=== PATIENT | female | born 1960 | race Two or more races ===

== ENCOUNTER → 2018-01-06 | Outpatient (CLI) | payer OTHER ==
[~2018-01-06] VITALS: Ht 152.4 cm; Wt 117.9 kg
[~2018-01-06] MED LIST: ALBUTEROL SULF8.5 GM IH; AMBIEN10 MG; AVAPRO300 MG PO; CARDIZEM CD240 MG; CARDIZEM CD240 MG PO; CARDIZEM120 MG PO; CLONAZEPAM0.5 MG; FLONASE16 GM NS; HYDROCHLOROTHIA25 MG; HYDROCHLOROTHIA25 MG PO; LOTRISONE CREAM45 GM TP; WELLBUTRIN SR150 MG; ZITHROMAX200 MG PO; ZITHROMAX500 MG PO; ZOLOFT50 MG; ZOVIRAX5 GM TP; ZYRTEC10 MG PO
== END | disposition home or self-care (01) ==
LOC: PPHC 17:54
DX: Z76.0 Encounter for issue of repeat prescription (principal)

== ENCOUNTER → 2018-01-27 | Outpatient (CLI) | payer OTHER ==
[~2018-01-27] VITALS: Ht 152.4 cm; Wt 127.0 kg
[~2018-01-27] MED LIST changes: +CLEOCIN HCL300 MG PO
== END | disposition home or self-care (01) ==
LOC: PPHC 16:12
DX: Z00.8 Encounter for other general examination (principal)

== ENCOUNTER 2018-01-28 07:55 | Outpatient (CLI) | payer OTHER | END 2018-01-28 15:00 | disposition home or self-care (01) | LOC: LAB 07:55 | DX: L02.612 Cutaneous abscess of left foot (principal); T78.1XXA Other adverse food reactions, not elsewhere classified, initial encounter; L08.9 Local infection of the skin and subcutaneous tissue, unspecified; D84.9 Immunodeficiency, unspecified ==

== ENCOUNTER 2018-08-12 13:35 | Outpatient (CLI) | payer OTHER | END 2018-08-12 13:51 | disposition home or self-care (01) | LOC: NUCLEAR 13:35 | DX: R06.09 Other forms of dyspnea (principal) ==

== ENCOUNTER → 2018-08-26 15:08 | Outpatient (CLI) | payer OTHER | END | disposition home or self-care (01) | LOC: RAD 15:08 | DX: J45.30 Mild persistent asthma, uncomplicated (principal) ==

== ENCOUNTER → 2019-03-28 17:21 | Outpatient (CLI) | payer OTHER | END | disposition home or self-care (01) | LOC: RAD 17:21 | DX: M94.0 Chondrocostal junction syndrome [Tietze] (principal); J45.30 Mild persistent asthma, uncomplicated ==

== ENCOUNTER 2020-02-13 09:26 | Outpatient (CLI) | payer OTHER | END 2020-02-13 14:51 | disposition home or self-care (01) | LOC: LAB 09:26 | DX: J11.1 Influenza due to unidentified influenza virus with other respiratory manifestations (principal); R05 Cough ==

== ENCOUNTER 2020-08-17 09:00 | Outpatient (CLI) | payer OTHER | END 2020-08-17 15:00 | disposition home or self-care (01) | LOC: PPH VACUNA 09:00 | DX: Z23 Encounter for immunization (principal) ==

== ENCOUNTER 2020-12-03 09:40 | Outpatient (CLI) | payer OTHER | END 2020-12-03 09:43 | disposition home or self-care (01) | LOC: PPH VACUNA 09:40 | DX: Z23 Encounter for immunization (principal) ==

== ENCOUNTER → 2021-04-22 10:31 | Outpatient (CLI) | payer OTHER | END | disposition home or self-care (01) | LOC: RAD 10:31 | PROVIDERS: ATTEND Emergency Medicine | DX: R05 Cough (principal); I10 Essential (primary) hypertension ==

== ENCOUNTER 2021-08-01 08:16 | Outpatient (CLI) | payer OTHER | END 2021-08-01 15:00 | disposition home or self-care (01) | LOC: LAB 08:16 | PROVIDERS: ATTEND Dentist General Practice | DX: Z20.818 Contact with and (suspected) exposure to other bacterial communicable diseases (principal) ==

== ENCOUNTER 2021-08-02 08:00 | Outpatient (CLI) | payer OTHER | END 2021-08-02 08:30 | disposition home or self-care (01) | LOC: PPH VACUNA 08:00 | PROVIDERS: ATTEND Emergency Medicine Pediatric Emergency Medicine | DX: Z23 Encounter for immunization (principal) ==

== ENCOUNTER 2021-08-27 08:00 | Outpatient (CLI) | payer OTHER | END 2021-08-27 08:30 | disposition home or self-care (01) | LOC: PPH VACUNA 08:00 | PROVIDERS: ATTEND Emergency Medicine Pediatric Emergency Medicine | DX: Z23 Encounter for immunization (principal) ==

== ENCOUNTER 2022-01-24 17:35 | Outpatient (CLI) | payer OTHER | END 2022-01-24 17:39 | disposition home or self-care (01) | LOC: RAD 17:35 | PROVIDERS: ATTEND Preventive Medicine Occupational Medicine | DX: M19.049 Primary osteoarthritis, unspecified hand (principal) ==

== ENCOUNTER 2022-03-21 08:00 | Outpatient (CLI) | payer OTHER | END 2022-03-21 08:30 | disposition home or self-care (01) | LOC: PPH VACUNA 08:00 | PROVIDERS: ATTEND Emergency Medicine Pediatric Emergency Medicine | DX: Z23 Encounter for immunization (principal) ==

== ENCOUNTER 2022-09-05 10:53 | Outpatient (CLI) | payer OTHER | END 2022-09-05 10:54 | disposition home or self-care (01) | LOC: PPH VACUNA 10:53 | PROVIDERS: ATTEND Emergency Medicine Pediatric Emergency Medicine | DX: Z23 Encounter for immunization (principal) ==

== ENCOUNTER 2022-09-12 12:46 | Outpatient (CLI) | payer OTHER | END 2022-09-12 12:56 | disposition home or self-care (01) | LOC: PPH VACUNA 12:46 | PROVIDERS: ATTEND Emergency Medicine Pediatric Emergency Medicine | DX: Z23 Encounter for immunization (principal) ==

== ENCOUNTER → 2023-07-30 | Outpatient (CLI) | payer OTHER | END | disposition home or self-care (01) | LOC: PPH VACUNA 08:46 | PROVIDERS: ATTEND Emergency Medicine Pediatric Emergency Medicine | DX: Z23 Encounter for immunization (principal) ==

== ENCOUNTER 2023-11-02 09:55 | Outpatient (CLI) | payer OTHER | END 2023-11-02 18:21 | disposition home or self-care (01) | LOC: LAB 09:55 | PROVIDERS: ATTEND Emergency Medicine Pediatric Emergency Medicine | DX: U07.1 COVID-19 (principal) ==

== ENCOUNTER 2024-02-14 14:26 | Inpatient (IN) | payer OTHER ==
[~2024-02-14] VITALS: Ht 162.6 cm; Wt 124.7 kg
[2024-02-14] MEDS ORDERED: MEPERIDINE HCL/PF 50 MG/ML VIAL IM STA (15:52)
[2024-02-14] MEDS ORDERED: 0.9 % SODIUM CHLORIDE 1,000 ML IV STA (15:53)
[2024-02-14] MEDS ORDERED: FAMOtidine 10 MG/ML (4ML VIAL) IV STA (15:54)
[2024-02-14] MEDS ORDERED: ONDANSETRON HCL 2 MG/ML VIAL IV ONE (16:00)
[2024-02-14 16:23] LABS: HEMATOCRIT 40.9 % (36.0-45.00); HEMOGLOBIN 13.5 g/dL (12.0-15.00); MEAN CELL VOLUME 81.2 fL (80.00-100.00); MEAN CORPUSCULAR HEMOGLOBIN 26.7 pg (27.00-32.0); PLATELET COUNT 283 K/uL (150-450); RED BLOOD COUNT 5.04 M/uL (4.00-6.00); RED CELL DISTRIBUTION WIDTH 15.1 % (11.5-14.5)
[2024-02-14 16:40] LABS: ALBUMIN 3.6 gm/dL (3.4-5.0); BILIRUBIN TOTAL 0.71 mg/dL (0.3-1.2); CALCIUM 10.1 mg/dL (8.5-10.1); CREATININE SERUM 0.77 mg/dL (0.55-1.02); GFR 75.96; POTASSIUM 3.75 mEq/L (3.5-5.1); TOTAL PROTEIN 8.2 gm/dL (6.4-8.2)
[2024-02-14 18:29] LABS: BILIRUBIN,CONJUGATED 0.13 mg/dL (0.0-0.2); BILIRUBIN,UNCONJUGATED 0.57 mg/dL (0.0-0.6)
[2024-02-14] MEDS ORDERED: IPRATROPIUM BROMIDE 0.5 MG/2.5 ML AMPUL.NEB IH SCH (19:18)
[2024-02-14] MEDS ORDERED: CEFTRIAXONE SODIUM 2,000 MG in 0.9 % SODIUM CHLORIDE 100 ML IV SCH (19:22)
[2024-02-14] MEDS ORDERED: METRONIDAZOLE/SODIUM CHLORIDE 100 ML IV SCH (19:23)
[2024-02-14] MEDS ORDERED: ONDANSETRON HCL 4 MG in 0.9 % SODIUM CHLORIDE 50 ML IV PRN (19:30)
[2024-02-14] MEDS ORDERED: ACETAMINOPHEN 500 MG GEL..CAP PO PRN (19:30)
[2024-02-14] MEDS ORDERED: INSULIN LISPRO 1,000 UNIT/10 ML UNITS SUBCUTANEO PRN (19:30)
[2024-02-14] MEDS ORDERED: 0.9 % SODIUM CHLORIDE 1,000 ML IV SCH (19:30)
[2024-02-14] MEDS ORDERED: MEPERIDINE HCL/PF 25 MG/ML VIAL IM PRN (19:30)
[2024-02-14] MEDS ORDERED: DEXTROSE 50 % IN WATER 0.5 G/ML DISP.SYRIN IV PRN (19:30)
[2024-02-14 21:32] LABS: INR 1.02; PARTIAL THROMBOPLASTIN TIME 29.1 SECONDS (22.0-34.0); PROTHROMBIN TIME 10.7 SECONDS (9.0-11.5)
[2024-02-14 23:48] LABS: PH,URINE 5.5 (5.0-8.0); URINE APPEARANCE Clear; URINE BILIRRUBIN Negative (NEGATIVE); URINE BLOOD Small; URINE COLOR Yellow; URINE GLUCOSE Negative (NEGATIVE); URINE LEUKOCYTE Negative; URINE NITRATE Negative; URINE PROTEIN Trace (NEGATIVE); URINE UROBILINOGEN 0.2 E.U./dl
[2024-02-14 23:49] LABS: URINE BACTERIA 162.5 uL (0.0-1933); URINE EPITHELIAL CELLS 8.1 uL (0.0-38.8); URINE WBC 2.1 uL (0.0-23.2)
[2024-02-15] MEDS ORDERED: LISINOPRIL 10 MG TABLET PO SCH (09:00)
[2024-02-15] MEDS ORDERED: ENOXAPARIN SODIUM 40 MG/0.4 ML SYRINGE SUBCUTANEO SCH (09:00)
[2024-02-15] MEDS ORDERED: DILTIAZEM HCL 240 MG CAP.SR.24H PO SCH (09:00)
[2024-02-15 15:17] LABS: CALCIUM 9.1 mg/dL (8.5-10.1); CHOL HDL RATIO 2.8 (0-5.0); CREATININE SERUM 0.7 mg/dL (0.55-1.02); GFR 84.79; POTASSIUM 3.31 mEq/L (3.5-5.1)
[2024-02-15] MEDS ORDERED: CEFEPIME HCL 2,000 MG VIAL IV SCH (17:00)
[2024-02-15] MEDS ORDERED: POTASSIUM CHLORIDE IN WATER 100 ML IV SCH (17:00)
[2024-02-15] MEDS ORDERED: AA 4.25%/CAL/LYTES/DEXT 5% 1,000 ML PERIFERAL SCH (17:00)
[2024-02-15] MEDS ORDERED: MONTELUKAST SODIUM 10 MG TABLET PO SCH (17:00)
[2024-02-16 06:40] LABS: HEMATOCRIT 34.9 % (36.0-45.00); HEMOGLOBIN 11.4 g/dL (12.0-15.00); MEAN CELL VOLUME 83.2 fL (80.00-100.00); MEAN CORPUSCULAR HEMOGLOBIN 27.3 pg (27.00-32.0); MEAN CORPUSCULAR HGB CONC 32.7 g/dl (32.0-36.0); PLATELET COUNT 269 K/uL (150-450); RED BLOOD COUNT 4.19 M/uL (4.00-6.00)
[2024-02-16 06:58] LABS: ALBUMIN 2.9 gm/dL (3.4-5.0); BILIRUBIN TOTAL 0.26 mg/dL (0.3-1.2); CREATININE SERUM 0.69 mg/dL (0.55-1.02); GFR 86.21; GLOBULINA 3.2 G/DL (2.4-3.5); MAGNESIUM 2.3 mg/dL (1.8-2.4); PHOSPHOROUS 3.9 mg/dL (2.5-4.9); POTASSIUM 3.56 mEq/L (3.5-5.1); TOTAL PROTEIN 6.1 gm/dL (6.4-8.2)
[2024-02-16 07:01] LABS: C-REACTIVE PROTEIN 33.8 MG/DL (0.00-0.29)
[2024-02-16] MEDS ORDERED: KETOROLAC TROMETHAMINE 30 MG VIAL ONE (14:29)
[2024-02-16] MEDS ORDERED: MEROPENEM 500 MG/VIAL VIAL IV SCH (18:00)
[2024-02-16 22:19] LABS: ABG PH 7.371 (7.35-7.45); ABG PO2 46.8 mmHg (80-100); ABG pCO2 53.5 mmHg (35-45); BASE EXCESS 3.7 mmol/l; BICARBONATE 30.3 mmol/l (23-25); SaO2 81.6 %; o2 21 %; puncture site RADIAL RIGHT
[2024-02-16 22:20] LABS: allen test SATISFACTORY
[2024-02-18 07:24] LABS: HEMATOCRIT 30.7 % (36.0-45.00); HEMOGLOBIN 9.8 g/dL (12.0-15.00); MEAN CELL VOLUME 82.5 fL (80.00-100.00); MEAN CORPUSCULAR HEMOGLOBIN 26.4 pg (27.00-32.0); PLATELET COUNT 276 K/uL (150-450); RED BLOOD COUNT 3.72 M/uL (4.00-6.00)
[2024-02-18 07:58] LABS: ALBUMIN 2.3 gm/dL (3.4-5.0); BILIRUBIN TOTAL 0.32 mg/dL (0.3-1.2); C-REACTIVE PROTEIN 30.3 MG/DL (0.00-0.29); CREATININE SERUM 0.5 mg/dL (0.55-1.02); GFR 125.02; GLOBULINA 3.9 G/DL (2.4-3.5); MAGNESIUM 2.1 mg/dL (1.8-2.4); PHOSPHOROUS 2.9 mg/dL (2.5-4.9); POTASSIUM 3.11 mEq/L (3.5-5.1); TOTAL PROTEIN 6.2 gm/dL (6.4-8.2)
[2024-02-18 21:18] LABS: PH,URINE 5.5 (5.0-8.0); URINE APPEARANCE Clear; URINE BILIRRUBIN Negative (NEGATIVE); URINE BLOOD Small; URINE COLOR Yellow; URINE GLUCOSE Negative (NEGATIVE); URINE LEUKOCYTE Negative; URINE NITRATE Negative; URINE PROTEIN Trace (NEGATIVE); URINE UROBILINOGEN 0.2 E.U./dl
[2024-02-18 21:22] LABS: URINE EPITHELIAL CELLS 3.3 uL (0.0-38.8); URINE RBC 5.1 uL (0.0-20.8)
[2024-02-19] MEDS ORDERED: METHYLPREDNISOLONE SOD SUCC 40 MG VIAL IV SCH (09:00)
[2024-02-19] MEDS ORDERED: DIPHENHYDRAMINE HCL 50 MG/ML VIAL 1ML IV ONE (21:45)
[2024-02-19] MEDS ORDERED: METHYLPREDNISOLONE SOD SUCC 40 MG VIAL IV ONE (21:45)
[2024-02-20] MEDS ORDERED: METHYLPREDNISOLONE SOD SUCC 40 MG VIAL IV SCH (01:00)
[2024-02-20 06:29] LABS: HEMATOCRIT 31.8 % (36.0-45.00); HEMOGLOBIN 10.2 g/dL (12.0-15.00); MEAN CELL VOLUME 81.7 fL (80.00-100.00); MEAN CORPUSCULAR HEMOGLOBIN 26.2 pg (27.00-32.0); PLATELET COUNT 336 K/uL (150-450); RED CELL DISTRIBUTION WIDTH 14.9 % (11.5-14.5)
[2024-02-20 08:10] LABS: CALCIUM 9.3 mg/dL (8.5-10.1); CREATININE SERUM 0.55 mg/dL (0.55-1.02); POTASSIUM 3.64 mEq/L (3.5-5.1)
[2024-02-20] MEDS ORDERED: METHYLPREDNISOLONE SOD SUCC 40 MG VIAL IV ONE (09:00)
[2024-02-20] MEDS ORDERED: DIPHENHYDRAMINE HCL 50 MG/ML VIAL 1ML IV ONE (09:00)
[2024-02-21] MEDS ORDERED: METHYLPREDNISOLONE SOD SUCC 40 MG VIAL IV SCH (09:00)
[2024-02-21] MEDS ORDERED: IPRATROPIUM BROMIDE 0.5 MG/2.5 ML AMPUL.NEB IH SCH (13:04)
[2024-02-21] MEDS ORDERED: CETIRIZINE HCL 5 MG/5 ML ML PO SCH (17:00)
[2024-02-21] MEDS ORDERED: PANTOPRAZOLE SODIUM 40 MG TABLET.DR PO SCH (21:00)
[2024-02-21] MEDS ORDERED: FLUTICASONE PROPIONATE 50 MCG SPRAY NASAL SCH (21:00)
[2024-02-22 08:55] LABS: ABG PH 7.435 (7.35-7.45); ABG PO2 52.8 mmHg (80-100); ABG pCO2 57.2 mmHg (35-45); BASE EXCESS 10.8 mmol/l; BICARBONATE 37.5 mmol/l (23-25); SaO2 89.1 %; Tco2 39.3 mmol/l; allen test SATISFACTORY; puncture site RADIAL RIGHT
[2024-02-22 08:56] LABS: o2 21 %
[2024-02-22] MEDS ORDERED: LISINOPRIL 20 MG TABLET PO SCH (17:00)
[2024-02-23 05:47] LABS: HEMATOCRIT 33.8 % (36.0-45.00); MEAN CELL VOLUME 83.2 fL (80.00-100.00); MEAN CORPUSCULAR HEMOGLOBIN 27.1 pg (27.00-32.0); MEAN CORPUSCULAR HGB CONC 32.6 g/dl (32.0-36.0); PLATELET COUNT 337 K/uL (150-450); RED BLOOD COUNT 4.06 M/uL (4.00-6.00); RED CELL DISTRIBUTION WIDTH 14.9 % (11.5-14.5)
[2024-02-23 07:03] LABS: ALBUMIN 2.7 gm/dL (3.4-5.0); BILIRUBIN TOTAL 0.24 mg/dL (0.3-1.2); CREATININE SERUM 0.51 mg/dL (0.55-1.02); GFR 122.19; POTASSIUM 4.16 mEq/L (3.5-5.1); TOTAL PROTEIN 5.7 gm/dL (6.4-8.2)
[2024-02-23] MEDS ORDERED: ENALAPRILAT DIHYDRATE 1.25 MG/ML VIAL IV ONE (10:59)
[2024-02-23] MEDS ORDERED: MIDAZOLAM HCL 2 MG/2 ML VIAL IV PUSH ONE (14:00)
[2024-02-23] MEDS ORDERED: fentaNYL CITRATE 50 MCG/ML AMPUL IV PUSH ONE (14:00)
== END 2024-02-24 18:57 | disposition home or self-care (01) | DRG 444 ==
LOC: ER 14:27 → SEC-K 19:33 → MEDI 19:33
PROVIDERS: General Practice; Internal Medicine; Internal Medicine Critical Care Medicine; Internal Medicine Infectious Disease; ADMIT Internal Medicine; ATTEND Internal Medicine
PROC: BW40ZZZ Ultrasonography of Abdomen (ICD-10-PCS; principal; 2024-02-14)
PROC: BW21YZZ Computerized Tomography (CT Scan) of Abdomen and Pelvis using Other Contrast (ICD-10-PCS; 2024-02-14)
PROC: B246ZZZ Ultrasonography of Right and Left Heart (ICD-10-PCS; 2024-02-14)
PROC: 3E0F7GC Introduction of Other Therapeutic Substance into Respiratory Tract, Via Natural or Artificial Opening (ICD-10-PCS; 2024-02-15)
PROC: BB24YZZ Computerized Tomography (CT Scan) of Bilateral Lungs using Other Contrast (ICD-10-PCS; 2024-02-19)
DX: K80.00 Calculus of gallbladder with acute cholecystitis without obstruction (principal); J96.92 Respiratory failure, unspecified with hypercapnia; J45.21 Mild intermittent asthma with (acute) exacerbation; Z68.42 Body mass index [BMI] 45.0-49.9, adult; E11.65 Type 2 diabetes mellitus with hyperglycemia; I27.20 Pulmonary hypertension, unspecified; J44.89 Other specified chronic obstructive pulmonary disease; G47.33 Obstructive sleep apnea (adult) (pediatric); K21.9 Gastro-esophageal reflux disease without esophagitis; Z79.4 Long term (current) use of insulin

== ENCOUNTER 2024-09-01 08:30 | Outpatient (CLI) | payer OTHER | END 2024-09-01 09:00 | disposition home or self-care (01) | LOC: PPH VACUNA 08:30 | PROVIDERS: ATTEND Emergency Medicine Pediatric Emergency Medicine | DX: Z23 Encounter for immunization (principal) ==

== ENCOUNTER → 2024-11-09 07:33 | Outpatient (CLI) | payer OTHER ==
[2024-11-09 08:26] LABS: HEMATOCRIT 37.1 % (36.0-45.00); HEMOGLOBIN 12.4 g/dL (12.0-15.00); MEAN CELL VOLUME 82.7 fL (80.00-100.00); MEAN CORPUSCULAR HEMOGLOBIN 27.6 pg (27.00-32.0); MEAN CORPUSCULAR HGB CONC 33.3 g/dl (32.0-36.0); PLATELET COUNT 311 K/uL (150-450); RED BLOOD COUNT 4.49 M/uL (4.00-6.00)
[2024-11-09 09:49] LABS: ALBUMIN 3.8 gm/dL (3.4-5.0); BILIRUBIN TOTAL 0.47 mg/dL (0.3-1.2); CALCIUM 9.7 mg/dL (8.5-10.1); CHOL HDL RATIO 2.3 (0-5.0); CREATININE SERUM 0.83 mg/dL (0.55-1.02); GFR 69.66; GLOBULINA 3.1 G/DL (2.4-3.5); POTASSIUM 4.12 mEq/L (3.5-5.1); TOTAL PROTEIN 6.9 gm/dL (6.4-8.2)
== END | disposition home or self-care (01) ==
LOC: LAB 11-08 15:05
PROVIDERS: ATTEND Internal Medicine
DX: D64.9 Anemia, unspecified (principal); R10.9 Unspecified abdominal pain; E78.5 Hyperlipidemia, unspecified; R80.9 Proteinuria, unspecified; E11.9 Type 2 diabetes mellitus without complications

== ENCOUNTER → 2024-11-09 07:33 | Outpatient (CLI) | payer OTHER | END | disposition home or self-care (01) | LOC: LAB 07:33 | PROVIDERS: ATTEND Preventive Medicine Occupational Medicine | DX: B19.10 Unspecified viral hepatitis B without hepatic coma (principal) ==

== ENCOUNTER 2025-02-08 07:55 | Outpatient (CLI) | payer OTHER ==
[2025-02-08 08:13] LABS: HEMATOCRIT 38.4 % (36.0-45.00); HEMOGLOBIN 12.7 g/dL (12.0-15.00); MEAN CELL VOLUME 81.8 fL (80.00-100.00); MEAN CORPUSCULAR HEMOGLOBIN 26.9 pg (27.00-32.0); PLATELET COUNT 317 K/uL (150-450); RED CELL DISTRIBUTION WIDTH 15.8 % (11.5-14.5)
[2025-02-08 08:40] LABS: INR 0.98; PARTIAL THROMBOPLASTIN TIME 24.5 SECONDS (22.0-34.0); PROTHROMBIN TIME 10.7 SECONDS (9.0-11.5)
[2025-02-08 09:09] LABS: ALBUMIN 3.7 gm/dL (3.4-5.0); BILIRUBIN TOTAL 0.56 mg/dL (0.3-1.2); CALCIUM 9.5 mg/dL (8.5-10.1); CHOL HDL RATIO 2.1 (0-5.0); CREATININE SERUM 0.89 mg/dL (0.55-1.02); GFR 64.27; GLOBULINA 3.1 G/DL (2.4-3.5); POTASSIUM 4.12 mEq/L (3.5-5.1); TOTAL PROTEIN 6.8 gm/dL (6.4-8.2); TSH 0.902 uIU/mL (0.358-3.74)
== END 2025-02-08 07:56 | disposition home or self-care (01) ==
LOC: LAB 07:55
PROVIDERS: ATTEND Internal Medicine
DX: D64.9 Anemia, unspecified (principal); R10.9 Unspecified abdominal pain; E03.9 Hypothyroidism, unspecified; E78.5 Hyperlipidemia, unspecified; E11.9 Type 2 diabetes mellitus without complications; I50.22 Chronic systolic (congestive) heart failure; Z79.01 Long term (current) use of anticoagulants

== ENCOUNTER 2025-02-16 13:28 | Emergency (ER) | payer OTHER ==
[~2025-02-16] VITALS: Ht 162.6 cm; Wt 117.9 kg
[2025-02-16 13:42] VITALS: BP 122/67; O2SAT 96
== END 2025-02-16 15:19 | disposition home or self-care (01) ==
LOC: ER 13:28
DX: S00.03XA Contusion of scalp, initial encounter (principal); W19.XXXA Unspecified fall, initial encounter; Y93.89 Activity, other specified; Y92.89 Other specified places as the place of occurrence of the external cause; Z88.6 Allergy status to analgesic agent; F32.89 Other specified depressive episodes; I10 Essential (primary) hypertension

== ENCOUNTER 2025-05-12 08:13 | Outpatient (CLI) | payer OTHER ==
[2025-05-12 09:13] LABS: EOS # 0.26 (0.04-0.54); EOS % 3.3 % (0.7-7.0); HEMATOCRIT 39.9 % (34.1-44.9); HEMOGLOBIN 12.4 g/dL (11.2-15.7); LYMPH # 1.65 (1.18-3.74); LYMPH % 21.2 % (19.3-53.1); MEAN CORPUSCULAR HEMOGLOBIN 26.2 pg (25.6-32.2); MONO # 0.58 (0.24-0.82); MONO % 7.4 % (4.7-12.5); NEUT # 5.22 (1.56-6.13); PLATELET COUNT 304 K/uL (163-369); RED BLOOD COUNT 4.73 M/uL (3.93-5.22); RED CELL DISTRIBUTION WIDTH 13.8 % (11.6-14.4)
[2025-05-12 09:59] LABS: ALBUMIN 3.9 gm/dL (3.4-5.0); BILIRUBIN TOTAL 0.45 mg/dL (0.3-1.2); CALCIUM 9.6 mg/dL (8.5-10.1); CHOL HDL RATIO 2.3 (0-5.0); CREATININE SERUM 0.7 mg/dL (0.55-1.02); GFR 84.51; POTASSIUM 4.25 mEq/L (3.5-5.1); TOTAL PROTEIN 6.9 gm/dL (6.4-8.2)
== END 2025-05-12 08:14 | disposition home or self-care (01) ==
LOC: LAB 08:13
PROVIDERS: ATTEND Internal Medicine
DX: D64.9 Anemia, unspecified (principal); R10.9 Unspecified abdominal pain; R78.5 Finding of other psychotropic drug in blood; R80.9 Proteinuria, unspecified; E11.9 Type 2 diabetes mellitus without complications

== ENCOUNTER 2025-08-31 08:06 | Outpatient (CLI) | payer OTHER ==
[2025-08-31 08:54] LABS: BASO % 1.0 % (0.1-1.2); EOS # 0.38 (0.04-0.54); EOS % 4.4 % (0.7-7.0); LYMPH # 1.92 (1.18-3.74); LYMPH % 22.2 % (19.3-53.1); MEAN PLATELET VOLUME 10.30 fl (9.4-12.4); MONO # 0.67 (0.24-0.82); MONO % 7.7 % (4.7-12.5); NEUT # 5.57 (1.56-6.13); NEUT % 64.4 % (34.0-71.1); RED CELL DISTRIBUTION WIDTH 14.6 % (11.6-14.4)
[2025-08-31 09:07] LABS: ERYTHROCYTE SEDIMENTATION RATE 28 mm/hr (0-30)
[2025-08-31 09:08] LABS: ob NEGATIVE (NEGATIVE)
[2025-08-31 09:16] LABS: URINE APPEARANCE Clear; URINE BILIRRUBIN Negative (NEGATIVE); URINE BLOOD Trace; URINE COLOR Yellow; URINE GLUCOSE Negative (NEGATIVE); URINE KETONE Negative (NEGATIVE); URINE LEUKOCYTE Negative; URINE NITRATE Negative; URINE PROTEIN Negative (NEGATIVE); URINE UROBILINOGEN 0.2 E.U./dl
[2025-08-31 09:20] LABS: URINE BACTERIA 5.9 uL (0.0-1933); URINE EPITHELIAL CELLS 1.8 uL (0.0-38.8); URINE RBC 24.9 uL (0.0-20.8)
[2025-08-31 09:28] LABS: URINE CAST 0.14 uL (0.0-1.40); URINE WBC 1.6 uL (0.0-23.2)
[2025-08-31 09:44] LABS: ALT/SGPT 31.0 U/L (12-78); AST/SGOT 14.0 U/L (15-37); BILIRUBIN TOTAL 0.58 mg/dL (0.3-1.2); BUN CREA RATIO 22.0 (7.0-25.0); CHOL HDL RATIO 2.2 (0-5.0); CREATININE SERUM 0.65 mg/dL (0.55-1.02); FREE TRIODOTIRONINE 2.86 pg/ml (2.18-3.98); GFR 92.06; GLOBULINA 3.1 G/DL (2.4-3.5); GLUCOSE FASTING 104.0 mg/dL (65-100); HDL 68.0 mg/dl (40-60); LDL 53.0 mg/dl (0-130); OSMOLALITY SERUM 284.0 MOSM/KG (275-295); T4 TOTAL 8.03 UG/DL (4.8-13.9); TSH 1.16 uIU/mL (0.358-3.74); VLDL 27.0 (0-39)
== END 2025-08-31 08:08 | disposition home or self-care (01) ==
LOC: LAB 08:06
PROVIDERS: ATTEND Internal Medicine
DX: G47.33 Obstructive sleep apnea (adult) (pediatric) (principal); K21.9 Gastro-esophageal reflux disease without esophagitis; I10 Essential (primary) hypertension; Z12.11 Encounter for screening for malignant neoplasm of colon; E03.9 Hypothyroidism, unspecified; Z88.0 Allergy status to penicillin; Z88.1 Allergy status to other antibiotic agents